=== PATIENT | female | born 1945 | race Caucasian/White ===

== ENCOUNTER 2016-12-01 14:58 | Outpatient (CLI) | payer MEDICARE ==
--- NOTE | 2016-12-01 15:57 | Mammography Report ---
BONE DEXA:12/01/16 14:58:00 CLINICAL: Postmenopausal. No comparison. TECHNIQUE: Two site bone DEXA performed on an Hologic scanner. FINDINGS: The average BMD of the lumbar spine L1-L4 is 0.783g/cm squared with a T-score of -2.4 and a Z-score of -0.2. The average BMD of the left hip is 0.767g/cm squared with a T-score of -1.4 and a Z-score of +0.2. IMPRESSION: WHO classification: Osteopenia with increased fracture risk based on spine and left hip measurements. RECOMMENDATION: Clinical correlation and routine screening. DEFINITIONS: BMD = Bone Mineral Density T-score = BMD related to mean peak bone mass of young adult (mean expressed in Standard Deviation) Z-score = Age matched BMD expressed in SD World Health Organization (WHO) Diagnostic Criteria Normal T-score > -1 SD Osteopenia T-score between -1 and -2.4 SD Osteoporosis T-score -2.5 SD or below NOTE: BMD is not the only risk factor for fracture. One should also consider factors such as the patient's age, risk of falling, previous osteoporotic fracture, family history of osteoporotic fractures, current smoker, and low body weight. Z-scores are not calculated if >80 years of age.
== END 2016-12-01 14:59 | disposition home or self-care (01) ==
LOC: SPVWC 14:58
PROVIDERS: ATTEND Orthopaedic Surgery
DX: M81.0 Age-related osteoporosis without current pathological fracture (principal); M85.88 Other specified disorders of bone density and structure, other site; M25.579 Pain in unspecified ankle and joints of unspecified foot; Z78.0 Asymptomatic menopausal state
CPT/HCPCS: 77080

== ENCOUNTER 2018-03-22 07:39 | Outpatient (CLI) | payer MEDICARE ==
--- NOTE | 2018-03-22 11:35 | Fluoroscopy Report ---
UPPER GI WITH AIR-CONTRAST HISTORY: Gastroesophageal reflux. COMPARISON: No relevant comparison. FINDINGS: Sample Tailor film of the abdomen is within normal limits. 51 fluoroscopic images were captured during this exam. Deglutition is normal. There is no evidence aspiration. Structures of the hypopharynx are within normal limits. The cervical and thoracic esophagus are normal caliber and mucosal pattern throughout. No evidence for stricture, mass or hiatal hernia. Of note, there is mild extrinsic compression of the distal esophagus by a tortuous aorta but this does not appear to obstruct. Occasional mild esophageal spasm was witnessed during this exam suggesting mild esophageal dysmotility or mild esophagitis. No reflux was witnessed during this procedure. The stomach is J-shaped. Mild thickening of the gastric rugae is suspected which could represent a mild gastritis. No evidence for ulceration or mucosal defect. The duodenal bulb and duodenal sweep are normal. The ligament of Treitz is in its appropriate position. IMPRESSION: Occasional mild esophageal spasm was noted during this exam suggesting a mild esophagitis. This could be associated with gastro-esophageal reflux although no episodes of reflux were witnessed during this exam. Findings suggestive of mild gastritis. No peptic ulcer disease appreciated.
== END 2018-03-22 07:40 | disposition home or self-care (01) ==
LOC: FLUORO 07:39
PROVIDERS: ATTEND Internal Medicine
DX: K21.9 Gastro-esophageal reflux disease without esophagitis (principal); K22.4 Dyskinesia of esophagus
CPT/HCPCS: 74241